=== PATIENT | male | born 1950 | race American Indian/Alaskan Native ===

== ENCOUNTER 2017-04-10 08:16 | Outpatient (CLI) | payer MEDICARE ==
[2017-04-10] MEDS ORDERED: NACL ONE (09:02)
[2017-04-10 09:04] LABS: Blood Urea Nitrogen 17 mg/dL (9-20)
--- NOTE | 2017-04-15 10:39 | Cat Scan Report ---
CT ANGIO ABD/FEMORAL ABD AORTA: HISTORY: Atherosclerosis, peripheral vascular disease. TECHNIQUE: Helical CT imaging with 1.25mm reconstructions following IV contrast. Sagittal and Coronal 2D reformatted images. 3 dimensional volume rendering technique. Stenosis was measured using NASCET criteria. COMPARISON: None. FINDINGS: ABDOMINAL AORTA: There are scattered partially calcified plaque throughout the abdominal aorta with less than 20% stenosis. No dissection or aneurysm. The celiac axis, SMA, FELICITA and bilateral single renal arteries are patent with less than 20% stenosis. The hepatic artery arises from the SMA instead of the celiac axis which is a normal variant. ILIAC ARTERIES: There are mild to moderate partially calcified plaques in the common iliac arteries and external iliac arteries with less than 30% stenosis. There is 50% stenosis at the origins of the internal iliac arteries bilaterally. RIGHT LOWER EXTREMITY: The right femoral and popliteal arteries are widely patent with less than 20% stenosis. The arterial structures distal to the right knee are patent to the ankle with less than 20% stenosis. LEFT LOWER EXTREMITY: There is moderate atherosclerotic disease in the proximal left superficial femoral artery with eventual occlusion of the mid superficial femoral artery. There is reconstitution of flow distally. The left popliteal artery appears to be patent but is severely limited secondary to artifact from a left knee replacement. The left peroneal artery is patent to the level of the left ankle with less than 30% stenosis. The left posterior tibial artery and left anterior tibial artery demonstrate severe stenosis or are occluded near their origins. Please correlate with the images. Impression: Mild atherosclerotic disease in the abdominal aorta and iliac arteries but no hemodynamically significant stenosis. Essentially normal arterial runoff in the right lower extremity. 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 Severe stenosis or occlusion in the left anterior and posterior tibial arteries.
== END 2017-04-10 08:17 | disposition home or self-care (01) ==
LOC: CT 08:16
PROVIDERS: ATTEND Radiology Vascular & Interventional Radiology
DX: I70.222 Atherosclerosis of native arteries of extremities with rest pain, left leg (principal); Z87.891 Personal history of nicotine dependence
CPT/HCPCS: 36415; 75635; 82565; 84520; Q9967